=== PATIENT | male | born 1985 | race Caucasian/White ===

== ENCOUNTER → 2018-05-10 | Outpatient (CLI) | payer BC ==
[2018-05-10 17:33] LABS: URIC ACID 8.7 MG/DL (3.5-7.2)
== END ==
LOC: M ADAMS 09:19
DX: M79.673 Pain in unspecified foot (principal)
CPT/HCPCS: 84550

== ENCOUNTER → 2018-11-16 | Outpatient (REF) | payer BC ==
[2018-11-16 20:36] LABS: BASO # 0.1 10^3/uL (0.0-0.2); BASO % 0.5 % (0.0-1.0); EOS # 0.4 10^3/uL (0.0-0.50); EOS % 3.5 % (0.0-3.0); HEMATOCRIT 45.6 % (42.0-52.0); HEMOGLOBIN 15.8 g/dl (13.5-17.5); LYMPH # 3.9 10^3/uL (1.5-4.5); LYMPH % 39.1 % (24.0-44.0); MEAN CORPUSCULAR HEMOGLOBIN 33.7 pg (27.0-33.0); MEAN CORPUSCULAR HGB CONC 34.6 g/dl (32.0-36.5); MEAN CORPUSCULAR VOLUME 97.2 fl (80.0-96.0); MONO # 0.7 10^3/uL (0.0-0.8); MONO % 6.7 % (0.0-5.0); NEUTROPHILS % 49.9 % (36.0-66.0); PLATELET COUNT, AUTOMATED 300 10^3/uL (150-450); RED BLOOD COUNT 4.69 10^6/uL (4.30-6.10)
[2018-11-16 20:42] LABS: ALBUMIN 4.2 GM/DL (3.2-5.2); ALT/SGPT 52 U/L (12-78); BILIRUBIN,TOTAL 0.4 MG/DL (0.2-1.0); BLOOD UREA NITROGEN 15 MG/DL (7-18); CALCIUM LEVEL 9.2 MG/DL (8.5-10.1); CARBON DIOXIDE LEVEL 27 MEQ/L (21-32); CHLORIDE LEVEL 104 MEQ/L (98-107); CHOLESTEROL LEVEL 198 MG/DL (<200); CHOLESTEROL RISK RATIO 4.125 (<5); CREATININE FOR GFR 0.93 MG/DL (0.70-1.30); GLOMERULAR FILTRATION RATE > 60.0 (>60); GLUCOSE, FASTING 88 MG/DL (70-100); HDL CHOLESTEROL 48 MG/DL (>40); LDL CHOLESTEROL 91 MG/DL (<100); NON-HDL-C 150 MG/DL; POTASSIUM SERUM 4.5 MEQ/L (3.5-5.1); SODIUM LEVEL 136 MEQ/L (136-145); TOTAL PROTEIN 7.5 GM/DL (6.4-8.2); TRIGLYCERIDES LEVEL 295 MG/DL (<150)
== END ==
LOC: M SFHCADAM 12:14
PROVIDERS: ATTEND Family Medicine
DX: E66.9 Obesity, unspecified (principal); Z87.39 Personal history of other diseases of the musculoskeletal system and connective tissue

== ENCOUNTER → 2018-12-11 | Outpatient (REF) | payer BC | LOC: M SFHCADAM 15:33 | PROVIDERS: ATTEND Family Medicine | DX: M1A.9XX0 Chronic gout, unspecified, without tophus (tophi) (principal) ==

== ENCOUNTER 2020-05-30 17:17 | Inpatient (IN) | payer BC ==
[~2020-05-30] VITALS: Ht 188 cm; Wt 129.1 kg
[2020-05-30] MEDS ORDERED: ZYLO300T6 (17:24)
[2020-05-30] MEDS ORDERED: SUCRALFATE 1 GM TAB PO ONE (17:45)
[2020-05-30 18:25] LABS: BASO % 0.2 % (0.0-1.0); EOS % 0.2 % (0.0-3.0); HEMATOCRIT 42.1 % (42.0-52.0); HEMOGLOBIN 14.8 g/dl (13.5-17.5); LYMPH # 1.8 10^3/uL (1.5-5.0); LYMPH % 8.5 % (24.0-44.0); MEAN CORPUSCULAR HEMOGLOBIN 33.6 pg (27.0-33.0); MEAN CORPUSCULAR HGB CONC 35.2 g/dl (32.0-36.5); MEAN CORPUSCULAR VOLUME 95.5 fl (80.0-96.0); MONO # 1.2 10^3/uL (0.0-0.8); MONO % 5.8 % (0.0-5.0); NEUTROPHILS # 17.9 10^3/uL (1.5-8.5); NEUTROPHILS % 84.8 % (36.0-66.0); PLATELET COUNT, AUTOMATED 286 10^3/uL (150-450); RED BLOOD COUNT 4.41 10^6/uL (4.30-6.10); WHITE BLOOD COUNT 21.1 10^3/uL (4.0-10.0)
[2020-05-30] MEDS ORDERED: ISOVUE-370 76% 100ML VIAL As Ordered ONE (18:49)
[2020-05-30 18:52] LABS: ALBUMIN 4.3 GM/DL (3.2-5.2); BILIRUBIN,DIRECT 0.2 MG/DL (0.0-0.2); BILIRUBIN,TOTAL 0.6 MG/DL (0.2-1.0); TOTAL PROTEIN 7.5 GM/DL (6.4-8.2)
--- NOTE | 2020-05-30 19:18 | REPVR ---
PROCEDURE INFORMATION: Exam: CT Abdomen And Pelvis With Contrast Exam date and time: 05/30/2020 6:52 PM Age: 35 years old Clinical indication: Abdominal pain; Localized; Right lower quadrant (rlq); Additional info: Rlq pain TECHNIQUE: Imaging protocol: Computed tomography of the abdomen and pelvis with intravenous contrast. Radiation optimization: All CT scans at this facility use at least one of these dose optimization techniques: automated exposure control; mA and/or kV adjustment per patient size (includes targeted exams where dose is matched to clinical indication); or iterative reconstruction. Contrast material: ISOVUE 370; Contrast volume: 100 ml; Contrast route: INTRAVENOUS (IV); COMPARISON: No relevant prior studies available. FINDINGS: Liver: There is a diffuse decrease in hepatic parenchymal density, consistent with steatosis. Hepatomegaly. Gallbladder and bile ducts: Normal. No calcified stones. No ductal dilation. Pancreas: Normal. No ductal dilation. Spleen: Normal. No splenomegaly. Adrenal glands: Normal. No mass. Kidneys and ureters: Normal. No hydronephrosis. Stomach and bowel: Unremarkable. No obstruction. Mural stratification throughout the colon likely related to increased fat in the lamina propria and incomplete distention. No mucosal thickening. Appendix: The appendix demonstrates diffuse distention measuring up to 11 point 5 mm, containing several appendicoliths, wall thickening and periappendiceal fluid, consistent with acute appendicitis. Minimal fluid tracks into the right lower quadrant and right lateral pelvic wall which may indicate rupture. Intraperitoneal space: Unremarkable. No free air. No significant fluid collection. Vasculature: Unremarkable. No abdominal aortic aneurysm. Lymph nodes: Unremarkable. No enlarged lymph nodes. Urinary bladder: Unremarkable as visualized. Reproductive: Unremarkable as visualized. Bones/joints: Mild central spinal stenosis L2-L3, moderate to severe central spinal stenosis L3-L4 and L4-L5 secondary to degenerative changes and congenital pedicle shortening. Soft tissues: Otherwise unremarkable. IMPRESSION: 1. There is a diffuse decrease in hepatic parenchymal density, consistent with steatosis. Hepatomegaly. 2. Acute appendicitis, possibly ruptured. 3. Mural stratification in the colon as indicated above. Finding most likely related to incomplete distension and other benign etiologies rather than colitis which should be excluded clinically. A critical call has been made to speak with the ordering physician/practitioner. This report will be amended once consultation has occurred. Electronically signed by: Louis Das On 05/30/2020 19:18:35 PM
[2020-05-30] MEDS ORDERED: PIPERACILLIN/TAZOBACTAM SOD 4.5 GM in D5W MINI-BAG PLUS 50 ML IV ONE (19:45)
[2020-05-30] MEDS ORDERED: ZYLO300T6 PO (21:30)
[2020-05-30] MEDS ORDERED: NS 1,000 ML IV ONE ×2 (21:30)
[2020-05-30] MEDS ORDERED: ONDANSETRON 4MG/2ML VIAL IV PRN (22:30)
[2020-05-30] MEDS ORDERED: fentaNYL 250 MCG/5 ML INJECTION (J3010) As Ordered ONE (22:43)
[2020-05-30] MEDS ORDERED: MIDAZOLAM INJ 2MG/2ML VIAL (J2250 PER 1MG) As Ordered ONE (22:43)
[2020-05-30] MEDS ORDERED: ROCURONIUM BROMIDE 50 MG/5 ML VIAL As Ordered ONE (22:44)
[2020-05-30] MEDS ORDERED: SUGAMMADEX SODIUM 500 MG/5 ML VIAL (BRIDION) As Ordered ONE (22:44)
[2020-05-30] MEDS ORDERED: dexameTHASONE 4 MG/ML 1ML VIAL (J1100 PER 1MG) As Ordered ONE (22:44)
[2020-05-30] MEDS ORDERED: LIDOCAINE 2% 100MG/5ML SDV (FOR ANES.) As Ordered ONE (22:44)
[2020-05-30] MEDS ORDERED: ONDANSETRON 4MG/2ML VIAL As Ordered ONE (22:44)
[2020-05-30] MEDS ORDERED: propofoL 200 MG/20 ML VIAL As Ordered ONE (22:44)
[2020-05-30] MEDS: LR 1,000 ML IV SCH (23:53)
[2020-05-31] VITALS (13 sets, daily range): BP systolic 107–129; BP diastolic 65–86
--- NOTE | 2020-05-31 00:15 | HPEPDOC ---
General Surgery H&P Date of Admission May 30, 2020 Attending Physician: ALMA CASTRO MD History and Physical CHIEF COMPLAINT: abdominal pain HISTORY OF PRESENT ILLNESS: Patient presents to the emergency room with about 5 PM today complaints of 1 day history of abdominal pain, bloating, nausea that started when he woke up this morning. He was feeling well when he slept last night. He denies any sick contacts. While in the emergency room he was also noted to be febrile. He reports a sharp constant pain of her right lower quadrant area without any radiation, worse with movement. ALLERGIES: Please see below. HOME MEDICATIONS: Please see below. PAST MEDICAL HISTORY: 1. gout. PAST SURGICAL HISTORY: 1. none. PERSONAL/SOCIAL HISTORY: reports smoking up to 1 pack a day, daily alcohol use up to three quarters of the bottle of rum REVIEW OF SYSTEMS: GENERAL: The patient previously well prior to start of symptoms today. Noted to be febrile the day. HEENT: [Denies blurred vision and double vision. Denies ear symptoms. Denies hoarseness]. NECK: [Denies any neck pain]. CARDIOVASCULAR: [Denies chest pain and palpitations]. MUSCULOSKELETAL: [Denies arthralgias, back pain and thrombophlebitis]. Has h istory of gout SKIN: [Denies rash]. NEUROLOGIC: [Denies headache, stroke and transient ischemic attack]. PSYCHIATRIC: [Denies anxiety and depression]. ENDOCRINE: [Denies thyroid disease]. HEMATOLOGY/ONCOLOGY: [Denies any bleeding or clotting disorder]. HEART: [Denies any chest pains, palpitations, paroxysmal dyspnea, orthopnea]. PULMONARY: [Denies chronic cough, dyspnea and wheezing]. GASTROINTESTINAL: [Denies rectal bleeding, family history of colon cancer, constipation, diarrhea, dysphagia, heartburn and jaundice]. GENITOURINARY: [Denies dysuria, frequency, hematuria and nocturia]. ENDOCRINE: [Denies polydipsia, polyphagia, polyuria, heat or cold intolerance]. INFECTIOUS: [Denies any recent upper respiratory tract infection, UTI, need for use of antibiotics]. NUTRITION: Poor appetite secondary to symptoms last meal intake the night before. PHYSICAL EXAMINATION: VITAL SIGNS: Please see below. GENERAL APPEARANCE: Patient seen, relatively comfortable with his hands on top of the right lower quadrant area. [Awake, alert, oriented]. HEENT: [Normocephalic, atraumatic. Kidder palpebral conjunctivae. Anicteric sclerae. Lips mildly dry]. CHEST: [No chest wall abnormalities. Normal respiratory motion/effort]. NECK: [Supple. No thyromegaly. No lymphadenopathies]. LUNGS: [Lung sounds are clear to auscultation bilaterally. No wheezing appreciated]. HEART: [No chest wall abnormalities. Heart rate and rhythm are regular with no murmurs]. ABDOMEN: Abdomen is obese, slightly rounded, nondistended. Tender to palpation over the right lower quadrant area with mild guarding. Nontender in the other parts the abdomen SKIN: Warm and dry. EXTREMITIES: [Extremities have no deformities. No edema identified]. NEUROLOGICAL: Awake, alert and oriented. ANCILLARIES: . LABORATORY DATA: Please see below. MICROBIOLOGY: Please see below. IMAGING: CT abdomen and pelvis The appendix demonstrates diffuse distention measuring up to 11 point 5 mm, containing several appendicoliths, wall thickening and periappendiceal fluid, consistent with acute appendicitis. Minimal fluid tracks into the right lower quadrant and right lateral pelvic wall which may indicate rupture. IMPRESSION AND PLAN: Acute appendicitis Patient symptoms consistent with acute appendicitis. He is CT scan of the abdomen and pelvis demonstrating an inflamed and enlarged appendix with multiple appendicoliths including the one at the base with small amount of fluid tracking over the right lateral abdominal wall suspicious for possibility of perforation likewise highly elevated white count corroborating this possibility. He will be brought to the operating room for laparoscopic appendectomy. Anticipate that he will need to stay in hospital for a couple of days for continued IV antibiotics until he is afebrile. Risks and benefits of the procedure explained to the patient and consent was obtained from the patient. If so far received a dose of Zosyn 3.375 g IV preoperatively while in the emergency room. Vital Signs Vital Signs Date Time Temp Pulse Resp B/P (MAP) Pulse Ox O2 Delivery O2 Flow Rate FiO2 05/30/20 22:32 111 97 05/30/20 22:31 100.9 179/81 (113) 05/30/20 21:49 19 Room Air Laboratory Data Labs 24H Laboratory Tests 2 05/30/20 18:11: Immature Granulocyte % (Auto) 0.5, Neutrophils (%) (Auto) 84.8H, Lymphocytes (%) (Auto) 8.5L, Monocytes (%) (Auto) 5.8H, Eosinophils (%) (Auto) 0.2, Basophils (%) (Auto) 0.2, Neutrophils # (Auto) 17.9H, Lymphocytes # (Auto) 1.8, Monocytes # (Auto) 1.2H, Eosinophils # (Auto) 0.0, Basophils # (Auto) 0.0, Nucleated Red Blood Cells % (auto) 0.0, Total Bilirubin 0.6, Direct Bilirubin 0.2, Aspartate Amino Transf (AST/SGOT) 38H, Alanine Aminotransferase (ALT/SGPT) 76, Alkaline Phosphatase 67, Total Protein 7.5, Albumin 4.3, Albumin/Globulin Ratio 1.3, Lipase 59L 05/30/20 18:14: Urine Color YELLOW, Urine Appearance CLEAR, Urine pH 5.0, Urine Specific Ruffin 1.024, Urine Protein NEGATIVE, Urine Glucose (UA) NEGATIVE, Urine Ketones 1+H, Urine Blood NEGATIVE, Urine Nitrite NEGATIVE, Urine Bilirubin NEGATIVE, Urine Urobilinogen 0.2, Urine Leukocyte Esterase NEGATIVE, Urine WBC (Auto) 1, Urine RBC (Auto) 2, Urine Hyaline Casts (Auto) 0, Urine Bacteria (Auto) NEGATIVE, Urine Squamous Epithelial Cells 0, Urine Mucus (Auto) SMALL, Urine Sperm (Auto) 05/30/20 18:16: POC Lactate (Misc Panel) 1.88 05/30/20 18:20: POC Glucose (Misc Panel) 104, POC Sodium (Misc Panel) 136, POC Potassium (Misc Panel) 3.9, POC Chloride (Misc Panel) 101, POC Total CO2 (Misc Panel) 22.0L, POC Blood Urea Nitrogen (Misc Panel 10, POC Ionized Calcium (Misc Panel) 4.7, POC Creatinine (Misc Panel) 0.8, POC Hematocrit (Misc Panel) 44.0 05/30/20 22:37: Coronavirus (COVID-19)(PCR) NEGATIVE CBC/BMP Laboratory Tests 05/30/20 18:11 Home Medications Scheduled Allopurinol (Zyloprim) 300 Mg Tablet, 300 MG PO QHS, (Reported) Allergies Coded Allergies: No Known Allergies (Unverified , 05/30/20) A-FIB/CHADSVASC A-FIB History Current/History of A-Fib/PAF?: No Current PO Anticoag Therapy: No ALMA CASTRO MD May 30, 2020 23:55
[2020-05-31] MEDS ORDERED: ROCURONIUM BROMIDE 50 MG/5 ML VIAL As Ordered ONE (00:31)
[2020-05-31] MEDS ORDERED: METOCLOPRAMIDE INJ 10MG/2ML VIAL (J2765 PER 1) As Ordered ONE (00:31)
[2020-05-31] MEDS ORDERED: KETOROLAC 60MG 2ML VIAL As Ordered ONE (00:31)
[2020-05-31] MEDS ORDERED: BUPIVACAINE HCL 0.25% 30ML VIAL As Ordered ONE (00:38)
[2020-05-31] MEDS ORDERED: LIDOCAINE 1% SDV 30ML VIAL As Ordered ONE (00:38)
[2020-05-31] MEDS ORDERED: SUGAMMADEX SODIUM 500 MG/5 ML VIAL (BRIDION) As Ordered ONE (00:44)
[2020-05-31] MEDS ORDERED: MORPHINE 4 MG/ML 1ML VIAL/SYRINGE (J2270) IV PRN (01:30)
[2020-05-31] MEDS ORDERED: KETOROLAC 30 MG/ML 1ML VIAL IV PRN (01:30)
[2020-05-31] MEDS ORDERED: PERCOCET 5MG/325MG TAB PO PRN ×2 (01:30)
--- NOTE | 2020-05-31 01:31 | POST-OPPD ---
Postoperative Procedure Note Date Of Procedure: May 31, 2020 PREOPERATIVE DIAGNOSIS: Acute appendicitis POSTOPERATIVE DIAGNOSIS: Perforated, gangrenous appendicitis FINDINGS: gangrenous appendix, broke apart during dissection at the proximal third with fecalith spillage PROCEDURE: Laparoscopic appendectomy SURGEON: Willie Cota MD [employer] SCARFER TENDER: ANESTHESIA: general anesthesia SPECIMENS: appendix ESTIMATED BLOOD LOSS: 20 DRAINS: 19 Klaus drain COMPLICATIONS: none POSTOPERATIVE CONDITION: stable WILLIE COTA MD May 31, 2020 01:31
--- NOTE | 2020-05-31 01:32 | ROOPDOC ---
[facility] Report Of Operation Report of Operation DATE OF PROCEDURE: 05/31/20 PREOPERATIVE DIAGNOSIS: Acute appendicitis POSTOPERATIVE DIAGNOSIS: Perforated, gangrenous appendicitis FINDINGS: gangrenous appendix, broke apart during dissection at the proximal third with fecalith spillage PROCEDURE: Laparoscopic appendectomy SURGEON: Willie Cota MD CHAIR INSPECTOR AND LEVELER: ANESTHESIA: general anesthesia SPECIMENS: appendix ESTIMATED BLOOD LOSS: 20 DRAINS: 19 Klaus drain COMPLICATIONS: none POSTOPERATIVE CONDITION: stable DESCRIPTION OF PROCEDURE: Patient has been given a dose of Zosyn perioperatively.Patient was brought to the operating room, placed supine on the table. Sequential compression device placed for DVT prophylaxis. General endotracheal anesthesia started. The abdomen prepped and draped in usual sterile fashion. After a surgical timeout, we began our surgery Entry into the abdomen done through an incision above the umbilicus. Veress needle inserted on a controlled fashion. Intra-abdominal placement confirmed with saline drop technique. CO2 insufflation started to a pressure of 15 mmHg. Using the same incision a 5 mm optical port was placed under direct vision of laparoscope. Insertion site was inspected for injury and none was found. He was placed on a Trendelenburg position the right side tilted to about 30 to allow for better visualization of the appendix. 2 working ports were placed at the suprapubic area and left lower quadrant area under direct vision. Operative findings: On diagnostic laparoscopy, most of the stern are covered with thick omentum. This evidence of inflammation associated with the omentum on the right lower quadrant area with exudates on the omentum covering the cecum and appendix. There is a small amount of brownish fluid along the right gutter. The appendix was located in a retrocecal course close to the insertion of the terminal ileum with significant fibrotic as well as inflammatory adhesions to the retroperitoneum. The appendix noted to be gangrenous throughout its course with perforation at the proximal third which eventually broke off during manipulation. The appendix was located, the adhered bowels and mesentery was widely dissected away from the appendix freeing up the appendix from the inflammatory adhesions using Maryland instrument and suction irrigation. The Surrounding bowels retracted away from the appendix. This was grasped to pull the base of the appendix into view. I had to divide some of the lateral attachments of the cecum to be able to rotate the cecum and further visualize the course of the appendix. There was some fibrotic adhesions of the appendix to the medial side of the cecum which was divided. The thickened hardened adipose tissue surrounding the appendix and adhering it to the retroperitoneum were likewise divided. The mucosa appendix is thickened and shortened which was also divided using Harmonic scalpel. The mesoappendix was divided using Harmonic scalpel down to the base. While dissecting at the area of the proximal third of the appendix the gangrenous appendix broke off and there was spillage of fecalith and small amount of stool. I continued dissecting to the base of the appendix which was relatively healthy. In the distal portion. Two PDS Endoloops were placed to ligate the appendix at its base then divided with a Harmonic Scalpel the stump cauterized. Stump appears healthy. Appendix was then delivered into an Endo Catch bag. After re-insufflation the surgical site was inspected for hemostasis, the visualized fluid collections irrigated and suctioned off until clear return. Surrounding areas of the abdomen and inspected for fluid collections or signs of injury. A 19 Klaus drain was left in place close to the abdomen initial stump for monitoring and for drainage of fluid irrigation. The abdomen was deflated. All ports removed. The suprapubic fascial defect (extraction site) repaired with 0 Vicryl in a mattress fashion. All skin incisions closed with 4-0 Monocryl in a subcuticular fashion. Steri-Strips and gauze dressing used for wound coverage. Patient was promptly awake and extubated and brought to recovery room stable. All counts of sponges and instruments verified to be correct. WILLIE COTA MD May 31, 2020 01:31
[2020-05-31] MEDS ORDERED: oxyCODONE 5MG TAB PO PRN (02:30)
[2020-05-31] MEDS ORDERED: LR 1,000 ML IV SCH (02:30)
[2020-05-31] MEDS ORDERED: ONDANSETRON 4MG/2ML VIAL IV PRN (02:30)
[2020-05-31] MEDS ORDERED: fentaNYL 100 MCG/2 ML INJECTION (J3010) IV PRN (02:30)
[2020-05-31] MEDS ORDERED: MORPHINE 2 MG/ML 1ML VIAL (J2270) IV PRN (02:30)
[2020-05-31] MEDS ORDERED: METOCLOPRAMIDE INJ 10MG/2ML VIAL (J2765 PER 1) IV PRN (02:30)
[2020-05-31] MEDS: PIPERACILLIN/TAZOBACTAM SOD 3.375 GM in D5W MINI-BAG PLUS 50 ML IV SCH ×4 (02:42→21:40)
[2020-05-31] MEDS: LR 1,000 ML IV SCH (04:03)
[2020-05-31] MEDS: OXAZEPAM 10 MG CAP PO SCH ×3 (05:51→21:39)
[2020-05-31 06:21] LABS: BASO % 0.2 % (0.0-1.0); HEMATOCRIT 40.8 % (42.0-52.0); LYMPH # 0.9 10^3/uL (1.5-5.0); LYMPH % 4.6 % (24.0-44.0); MEAN CORPUSCULAR HEMOGLOBIN 33.5 pg (27.0-33.0); MEAN CORPUSCULAR HGB CONC 34.3 g/dl (32.0-36.5); MEAN CORPUSCULAR VOLUME 97.6 fl (80.0-96.0); MONO # 0.8 10^3/uL (0.0-0.8); MONO % 4.2 % (0.0-5.0); NEUTROPHILS # 17.3 10^3/uL (1.5-8.5); NEUTROPHILS % 90.4 % (36.0-66.0); PLATELET COUNT, AUTOMATED 264 10^3/uL (150-450); RED BLOOD COUNT 4.18 10^6/uL (4.30-6.10); WHITE BLOOD COUNT 19.1 10^3/uL (4.0-10.0)
[2020-05-31 06:44] LABS: BLOOD UREA NITROGEN 10 MG/DL (7-18); CALCIUM LEVEL 9.1 MG/DL (8.5-10.1); CARBON DIOXIDE LEVEL 23 MEQ/L (21-32); CHLORIDE LEVEL 103 MEQ/L (98-107); CREATININE FOR GFR 1.15 MG/DL (0.70-1.30); GLOMERULAR FILTRATION RATE > 60.0 (>60); GLUCOSE, FASTING 137 MG/DL (70-100); POTASSIUM SERUM 4.4 MEQ/L (3.5-5.1); SODIUM LEVEL 134 MEQ/L (136-145)
[2020-05-31] MEDS ORDERED: KCL 10MEQ IN D5/0.45NS 1000ML 1,000 ML IV SCH (07:45)
[2020-05-31] MEDS: NICOTINE 21MG/24HR 1 EA TRANSDERMAL TD SCH (15:44)
[2020-06-01] MEDS: PIPERACILLIN/TAZOBACTAM SOD 3.375 GM in D5W MINI-BAG PLUS 50 ML IV SCH ×2 (02:41→08:17)
[2020-06-01 06:00] VITALS: BP 131/73
[2020-06-01] MEDS: OXAZEPAM 10 MG CAP PO SCH (06:17)
[2020-06-01 06:31] LABS: BASO % 0.1 % (0.0-1.0); EOS # 0.1 10^3/uL (0.0-0.5); EOS % 0.3 % (0.0-3.0); HEMATOCRIT 40.3 % (42.0-52.0); HEMOGLOBIN 13.6 g/dl (13.5-17.5); LYMPH # 2.3 10^3/uL (1.5-5.0); MEAN CORPUSCULAR HEMOGLOBIN 33.7 pg (27.0-33.0); MEAN CORPUSCULAR HGB CONC 33.7 g/dl (32.0-36.5); MONO % 5.4 % (0.0-5.0); NEUTROPHILS # 14.2 10^3/uL (1.5-8.5); NEUTROPHILS % 80.1 % (36.0-66.0); PLATELET COUNT, AUTOMATED 255 10^3/uL (150-450); RED BLOOD COUNT 4.03 10^6/uL (4.30-6.10); WHITE BLOOD COUNT 17.7 10^3/uL (4.0-10.0)
[2020-06-01 06:53] LABS: BLOOD UREA NITROGEN 11 MG/DL (7-18); CALCIUM LEVEL 9.3 MG/DL (8.5-10.1); CARBON DIOXIDE LEVEL 27 MEQ/L (21-32); CHLORIDE LEVEL 105 MEQ/L (98-107); CREATININE FOR GFR 0.99 MG/DL (0.70-1.30); GLOMERULAR FILTRATION RATE > 60.0 (>60); GLUCOSE, FASTING 114 MG/DL (70-100); POTASSIUM SERUM 3.7 MEQ/L (3.5-5.1); SODIUM LEVEL 139 MEQ/L (136-145)
[2020-06-01] MEDS: NICOTINE 21MG/24HR 1 EA TRANSDERMAL TD SCH (08:17)
--- NOTE | 2020-06-01 09:34 | DS.PDOC ---
Discharge Summary General Date of Admission May 30, 2020 at 22:24 Date of Discharge June 01, 2020. Attending Physician: ALMA CASTRO MD Discharge Summary PROCEDURES PERFORMED DURING STAY: Laparoscopic Appendectomy. ADMITTING DIAGNOSES: 1. acute appendicitis 2. daily alcohol use. DISCHARGE DIAGNOSES: 1. acute appendicitis with perforation, no abscess 2. daily alcohol use. COMPLICATIONS/CHIEF COMPLAINT: Acute Appendicitis. HISTORY OF PRESENT ILLNESS: . HOSPITAL COURSE: . DISCHARGE MEDICATIONS: Please see below. ALLERGIES: Please see below. PHYSICAL EXAMINATION ON DISCHARGE: VITAL SIGNS: Please see below. GENERAL: HEENT: NECK: CARDIOVASCULAR EXAMINATION: RESPIRATORY EXAMINATION: ABDOMINAL EXAMINATION: EXTREMITIES: SKIN: NEUROLOGICAL EXAMINATION: PSYCHIATRIC EXAMINATION: LABORATORY DATA: Please see below. IMAGING: PROGNOSIS: ACTIVITY: [As tolerated]. DIET: DISCHARGE PLAN: DISPOSITION: . DISCHARGE INSTRUCTIONS: 1. . ITEMS TO FOLLOWUP ON ON OUTPATIENT: 1. . DISCHARGE CONDITION: [Stable]. TIME SPENT ON DISCHARGE: Greater than minutes. Vital Signs/I&Os Vital Signs Date Time Temp Pulse Resp B/P (MAP) Pulse Ox O2 Delivery O2 Flow Rate FiO2 06/01/20 06:00 87 131/73 06/01/20 06:00 97.6 18 97 05/31/20 14:00 Room Air 05/31/20 05:55 0.5 I&O- Last 24 Hours up to 6 AM 06/01/20 06:00 Intake Total 1430 ml Output Total 760 ml Balance 670 ml Laboratory Data Labs 24H Laboratory Tests 2 06/01/20 06:08: Immature Granulocyte % (Auto) 1.1, Neutrophils (%) (Auto) 80.1H, Lymphocytes (%) (Auto) 13.0L, Monocytes (%) (Auto) 5.4H, Eosinophils (%) (Auto) 0.3, Basophils (%) (Auto) 0.1, Neutrophils # (Auto) 14.2H, Lymphocytes # (Auto) 2.3, Monocytes # (Auto) 1.0H, Eosinophils # (Auto) 0.1, Basophils # (Auto) 0.0, Nucleated Red Blood Cells % (auto) 0.0, Anion Gap 7L, Glomerular Filtration Rate > 60.0, Calcium Level 9.3 CBC/BMP Laboratory Tests 06/01/20 06:08 Discharge Medications Scheduled Allopurinol (Zyloprim) 300 Mg Tablet, 300 MG PO QHS, (Reported) Allergies Coded Allergies: No Known Allergies (Unverified , 05/30/20) ALMA CASTRO MD Jun 01, 2020 09:34
[2020-06-01] MEDS ORDERED: PERCOCET PO (09:41)
[2020-06-01] MEDS ORDERED: AUGM500T34 PO (09:41)
[2020-06-01] MEDS ORDERED: FLAG500T PO (09:46)
== END 2020-06-01 12:52 | disposition home or self-care (01) | DRG 225 ==
LOC: M ED 17:17 → M ED INP 22:24 → M MSPAV 05-31 02:24
PROVIDERS: ADMIT Surgery; ATTEND Surgery
PROC: 0DTJ4ZZ Resection of Appendix, Percutaneous Endoscopic Approach (ICD-10-PCS; principal; 2020-05-31 00:15)
DX: K35.32 Acute appendicitis with perforation, localized peritonitis, and gangrene, without abscess (principal); M10.9 Gout, unspecified; F17.200 Nicotine dependence, unspecified, uncomplicated; F10.10 Alcohol abuse, uncomplicated

== ENCOUNTER → 2020-09-04 | Outpatient (CLI) | payer BC ==
[~2020-09-04] MED LIST: AUGM500T34 PO; FLAG500T PO; PERCOCET PO; ZYLO300T6; ZYLO300T6 PO
--- NOTE | 2020-09-04 08:51 | REP ---
INDICATION: RUQ PAIN COMPARISON: None. TECHNIQUE: Real time bishop scale ultrasound examination using curved array transducer. FINDINGS: Liver is normal in contour, size, and echogenicity without focal hepatic lesions identified. Pancreas is incompletely evaluated due to interposed bowel gas. The gallbladder is normal and without gallstones, wall thickening, or pericholecystic fluid. No biliary ductal dilatation is appreciated and the common bile duct measures 3.0 mm diameter. Right kidney is normal in reniform shape without hydronephrosis and measures 12.9 x 5.7 x 5.3 cm. No ascites in the visualized right upper quadrant. IMPRESSION: Normal limited right upper quadrant ultrasound <Electronically signed by Jaison Dinh > 09/04/20 0818
== END ==
LOC: M RAD 08:18
PROVIDERS: ATTEND Family Medicine
DX: R10.11 Right upper quadrant pain (principal)

== ENCOUNTER → 2020-09-29 | Outpatient (REF) | payer BC ==
[2020-09-29 16:47] LABS: BASO # 0.1 10^3/uL (0.0-0.2); BASO % 0.5 % (0.0-1.0); EOS # 0.3 10^3/uL (0.0-0.5); EOS % 3.1 % (0.0-3.0); HEMATOCRIT 39.9 % (42.0-52.0); HEMOGLOBIN 13.7 g/dl (13.5-17.5); LYMPH # 3.7 10^3/uL (1.5-5.0); LYMPH % 33.8 % (24.0-44.0); MEAN CORPUSCULAR HGB CONC 34.3 g/dl (32.0-36.5); MEAN CORPUSCULAR VOLUME 96.1 fl (80.0-96.0); MONO # 0.7 10^3/uL (0.0-0.8); MONO % 6.2 % (2.0-8.0); NEUTROPHILS # 6.1 10^3/uL (1.5-8.5); NEUTROPHILS % 55.9 % (36.0-66.0); PLATELET COUNT, AUTOMATED 287 10^3/uL (150-450); RED BLOOD COUNT 4.15 10^6/uL (4.30-6.10); WHITE BLOOD COUNT 10.9 10^3/uL (4.0-10.0)
[2020-09-29 17:06] LABS: ALBUMIN 4.1 GM/DL (3.2-5.2); ALT/SGPT 44 U/L (12-78); AMYLASE 46 U/L (25-115); BILIRUBIN,TOTAL 0.2 MG/DL (0.2-1.0); BLOOD UREA NITROGEN 16 MG/DL (7-18); CALCIUM LEVEL 9.2 MG/DL (8.5-10.1); CARBON DIOXIDE LEVEL 25 MEQ/L (21-32); CHLORIDE LEVEL 107 MEQ/L (98-107); CREATININE FOR GFR 0.96 MG/DL (0.70-1.30); GLOMERULAR FILTRATION RATE > 60.0 (>60); GLUCOSE, FASTING 86 MG/DL (70-100); LIPASE 183 U/L (73-393); POTASSIUM SERUM 4.1 MEQ/L (3.5-5.1); SODIUM LEVEL 139 MEQ/L (136-145); TOTAL PROTEIN 7.3 GM/DL (6.4-8.2)
== END ==
LOC: M SFHCADAM 15:02
PROVIDERS: ATTEND Family Medicine
DX: R10.11 Right upper quadrant pain (principal)

== ENCOUNTER 2021-03-08 19:46 | Emergency (ER) | payer BC ==
[~2021-03-08] VITALS: Ht 188 cm; Wt 125.6 kg
[2021-03-08] MEDS ORDERED: PENI500T PO (22:14)
[2021-03-08] MEDS ORDERED: PENICILLIN V POTASSIUM 500 MG TAB PO ONE ×2 (22:15→22:30)
[2021-03-08] MEDS ORDERED: ACETAMINOPHEN 325 MG TAB PO ONE (22:15)
[2021-03-08 22:58] VITALS: BP 137/81
== END 2021-03-08 22:58 | disposition home or self-care (01) ==
LOC: M ED 19:46
DX: K04.7 Periapical abscess without sinus (principal); F17.200 Nicotine dependence, unspecified, uncomplicated